=== PATIENT | female | born 1975 | race Two or more races ===

== ENCOUNTER 2016-06-02 14:20 | Emergency (ER) | payer SELFPAY ==
[2016-06-02] MEDS ORDERED: Ondansetron 4 MG/2 ML SDV IVPUSH ONE (15:07)
[2016-06-02] MEDS ORDERED: Sodium Chloride 0.9% 10 ML Syringe FLUSH PRN (15:07)
[2016-06-02] MEDS ORDERED: HYDROmorphone 1 MG/ML Syringe IVPUSH ONE (15:08)
[2016-06-02] MEDS ORDERED: Sodium Chloride 0.9% 1,000 ML IV SCH (15:15)
--- NOTE | 2016-06-02 15:15 | EDM.PDOC ---
ED HPI GI/ABDOMINAL - General Chief Complaint: Abdominal Pain Stated Complaint: ABD PAIN Time Seen by Provider: 06/02/16 14:49 Source of Information: Reports: Patient, Family History Limitations: Reports: No limitations - History of Present Illness INITIAL COMMENTS - FREE TEXT/NARRATIVE: The patient presents with right lower abdominal pain. This started last night. Her says it started in the middle of her back and now it is in the right lower abdomen. She has some nausea and vomiting. She has no dysuria or diarrhea. She has no history of kidney stones. She still has her gallbladder and appendix. Timing/Duration: Reports: Day(s): (Last night) Location: flank (right flank to right lower abdomen) Quality: Reports: stabbing Severity: severe Context: Denies: sick contact, bad/questionable food, out of country travel, recent surgery, recent trauma, lifting, activity/exercise Associated Symptoms (-Female): Reports: nausea/vomiting. 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 Denies: Diarrhea : Reports: flank pain (Right). Denies: dysuria, frequency Musculoskeletal: Reports: no symptoms Skin: Reports: no symptoms ED EXAM, GI/ABD - Physical Exam Exam: See Below Exam Limited By: No limitations General Appearance: alert, no apparent distress Ears: normal external exam Nose: normal inspection Head: atraumatic, normocephalic Neck: normal inspection Respiratory/Chest: no respiratory distress, lungs clear, normal breath sounds Cardiovascular: regular rate, rhythm, no edema, no murmur GI/Abdominal: soft, no organomegaly, no mass, tenderness (Moderate tenderness to the right lower abdomen) Back Exam: normal inspection Extremities: normal inspection Neurological: alert, oriented, no motor/sensory deficits Course - Vital Signs Last Recorded V/S: Last Vital Signs Temp 98.1 F 06/02/16 14:45 Pulse 71 06/02/16 14:45 Resp 20 06/02/16 14:45 BP 136/113 H 06/02/16 14:45 Pulse Ox 99 06/02/16 14:45 - Orders/Labs/Meds Orders: Active Orders 24 hr Category Date Time Status Peripheral IV Care [RC] . DIRECTED Care 06/02/16 15:08 Active Sodium Chloride 0.9% [Normal Saline] 1,000 ml Med 06/02/16 15:15 Active IV ASDIRECTED Sodium Chloride 0.9% [Saline Flush] Med 06/02/16 15:07 Active 10 ml FLUSH ASDIRECTED PRN ED Antiemetic Medication Reflex [OM.PC] Stat Oth 06/02/16 15:07 Ordered Peripheral IV Insertion Adult [OM.PC] Stat Oth 06/02/16 15:07 Ordered Medication Orders Sodium Chloride (Normal Saline) 1,000 mls @ 125 mls/hr IV ASDIRECTED ECHO Last Admin: 06/02/16 15:17 Dose: 125 mls/hr Sodium Chloride (Saline Flush) 10 ml FLUSH ASDIRECTED PRN PRN Reason: Keep Vein Open Last Admin: 06/02/16 15:19 Dose: 10 ml Labs: Laboratory Tests 06/02/16 06/02/16 06/02/16 Range/Units 14:45 15:00 15:00 WBC 11.58 H (3.98-10.04) K/mm3 RBC 4.66 (3.98-5.22) M/mm3 Hgb 13.0 (11.2-15.7) gm/L Hct 38.5 (34.1-44.9) % MCV 82.6 (79.4-94.8) fl MCH 27.9 (25.6-32.2) pg MCHC 33.8 (32.2-35.5) g/dl RDW Std Deviation 40.6 (36.4-46.3) fL Plt Count 259 (182-369) K/mm3 MPV 10.2 (9.4-12.3) fl Neut % (Auto) 52.6 (34.0-71.1) % Lymph % (Auto) 31.8 (19.3-51.7) % [place] % (Auto) 6.8 (4.7-12.5) % Eos % (Auto) 8.0 H (0.7-5.8) Baso % (Auto) 0.5 (0.1-1.2) % Neut # 6.09 (1.56-6.13) K/mm3 Lymph # 3.68 (1.18-3.74) K/mm3 [place] # 0.79 H (0.24-0.36) K/mm3 Eos # 0.93 H (0.04-0.36) K/mm3 Baso # 0.06 (0.01-0.08) K/mm3 Sodium 139 (136-145) mEq/L Potassium 4.0 (3.5-5.1) mEq/L Chloride 104 (98-107) mEq/L Carbon Dioxide 26 (21-32) mEq/L Anion Gap 13.0 (5-15) BUN 22 H (7-18) mg/dL Creatinine 0.6 (0.55-1.02) mg/dL Est Cr Clr Drug Dosing TNP Estimated GFR (MDRD) > 60 (>60) mL/min BUN/Creatinine Ratio 36.7 H (14-18) Glucose 83 (74-106) mg/dL Calcium 8.9 (8.5-10.1) mg/dL Total Bilirubin 0.5 (0.2-1.0) mg/dL AST 19 (15-37) U/L ALT 27 (14-59) U/L Alkaline Phosphatase 66 (46-116) U/L Total Protein 7.5 (6.4-8.2) g/dl Albumin 3.9 (3.4-5.0) g/dl Globulin 3.6 gm/dL Albumin/Globulin Ratio 1.1 (1-2) Lipase 114 (73-393) U/L HCG, Qual (NEGATIVE) Urine Color Light yellow (Yellow) Urine Appearance Clear (Clear) Urine pH 6.0 (5.0-8.0) Ur Specific [place] > or = 1.030 (1.005-1.030) Urine Protein Negative (Negative) Urine Glucose (UA) Negative (Negative) Urine Ketones Negative (Negative) Urine Occult Blood Negative (Negative) Urine Nitrite Negative (Negative) Urine Bilirubin Negative (Negative) Urine Urobilinogen 0.2 (0.2-1.0) Ur Leukocyte Esterase Negative (Negative) Urine RBC 0-5 (0-5) /hpf Urine WBC 0-5 (0-5) /hpf Ur Epithelial Cells 0-5 (0-5) /hpf Urine Bacteria Not seen (FEW) /hpf Urine Mucus Not seen (FEW) /hpf 06/02/16 Range/Units 15:00 WBC (3.98-10.04) K/mm3 RBC (3.98-5.22) M/mm3 Hgb (11.2-15.7) gm/L Hct (34.1-44.9) % MCV (79.4-94.8) fl MCH (25.6-32.2) pg MCHC (32.2-35.5) g/dl RDW Std Deviation (36.4-46.3) fL Plt Count (182-369) K/mm3 MPV (9.4-12.3) fl Neut % (Auto) (34.0-71.1) % Lymph % (Auto) (19.3-51.7) % [place] % (Auto) (4.7-12.5) % Eos % (Auto) (0.7-5.8) Baso % (Auto) (0.1-1.2) % Neut # (1.56-6.13) K/mm3 Lymph # (1.18-3.74) K/mm3 [place] # (0.24-0.36) K/mm3 Eos # (0.04-0.36) K/mm3 Baso # (0.01-0.08) K/mm3 Sodium (136-145) mEq/L Potassium (3.5-5.1) mEq/L Chloride (98-107) mEq/L Carbon Dioxide (21-32) mEq/L Anion Gap (5-15) BUN (7-18) mg/dL Creatinine (0.55-1.02) mg/dL Est Cr Clr Drug Dosing Estimated GFR (MDRD) (>60) mL/min BUN/Creatinine Ratio (14-18) Glucose (74-106) mg/dL Calcium (8.5-10.1) mg/dL Total Bilirubin (0.2-1.0) mg/dL AST (15-37) U/L ALT (14-59) U/L Alkaline Phosphatase (46-116) U/L Total Protein (6.4-8.2) g/dl Albumin (3.4-5.0) g/dl Globulin gm/dL Albumin/Globulin Ratio (1-2) Lipase (73-393) U/L HCG, Qual Negative (NEGATIVE) Urine Color (Yellow) Urine Appearance (Clear) Urine pH (5.0-8.0) Ur Specific [place] (1.005-1.030) Urine Protein (Negative) Urine Glucose (UA) (Negative) Urine Ketones (Negative) Urine Occult Blood (Negative) Urine Nitrite (Negative) Urine Bilirubin (Negative) Urine Urobilinogen (0.2-1.0) Ur Leukocyte Esterase (Negative) Urine RBC (0-5) /hpf Urine WBC (0-5) /hpf Ur Epithelial Cells (0-5) /hpf Urine Bacteria (FEW) /hpf Urine Mucus (FEW) /hpf Meds: Medications Generic Name Dose Route Start Last Admin Trade Name Freq PRN Reason Stop Dose Admin Sodium Chloride 1,000 mls @ 125 mls/hr 06/02/16 15:15 06/02/16 15:17 Normal Saline IV 125 mls/hr ASDIRECTED EHCO Administration Sodium Chloride 10 ml 06/02/16 15:07 06/02/16 15:19 Saline Flush FLUSH 10 ml ASDIRECTED PRN Administration Keep Vein Open Discontinued Medications Generic Name Dose Route Start Last Admin Trade Name Freq PRN Reason Stop Dose Admin Hydromorphone HCl 1 mg 06/02/16 15:08 06/02/16 15:20 Dilaudid IVPUSH 06/02/16 15:09 1 mg ONETIME ONE Administration Ondansetron HCl 4 mg 06/02/16 15:07 06/02/16 15:17 Zofran IVPUSH 06/02/16 15:08 4 mg ONETIME ONE Administration - Re-Assessments/Exams Free Text/Narrative Re-Assessment/Exam: 06/02/16 15:15 I ordered an IV NS at 125mL/hr, zofran 4mg IV and dilaudid 1mg IV. 06/02/16 17:03 Her WBC is slightly elevated at 11.58. Her CMP is negative. Her HCG and UA are negative. Her CT shows nothing acute. Her appendix is at the high side of normal with no inflammatory changes. There are no kidney stones. She is doing better. I will give her some toradol 30mg IV for the slight pain she still has and discharge her home. Departure - Departure Time of Disposition: 17:05 Disposition: Home, Self-Care 01 Condition: good Clinical Impression: Abdominal pain Qualifiers: Abdominal location: right lower quadrant Qualified Code(s): R10.31 - Right lower quadrant pain Prescriptions: Ondansetron [Zofran ODT] 4 mg PO Q6H PRN #20 tab.dis PRN Reason: Nausea/Vomiting traMADol [Ultram] 50 - 100 mg PO Q6H PRN #20 tablet PRN Reason: Pain Referrals: Eulogio Rashid [Physician] - 1 Week Forms: ED Department Discharge Additional Instructions: Take the ultram as needed for pain. Use the zofran as needed for nausea. Please return if you are worse. - My Orders Last 24 Hours: My Active Orders 06/02/16 15:07 Sodium Chloride 0.9% [Saline Flush] 10 ml FLUSH ASDIRECTED PRN ED Antiemetic Medication Reflex [OM.PC] Stat Peripheral IV Insertion Adult [OM.PC] Stat 06/02/16 15:08 Peripheral IV Care [RC] . DIRECTED 06/02/16 15:15 Sodium Chloride 0.9% [Normal Saline] 1,000 ml IV ASDIRECTED - Assessment/Plan Last 24 Hours: My Active Orders 06/02/16 15:07 Sodium Chloride 0.9% [Saline Flush] 10 ml FLUSH ASDIRECTED PRN ED Antiemetic Medication Reflex [OM.PC] Stat Peripheral IV Insertion Adult [OM.PC] Stat 06/02/16 15:08 Peripheral IV Care [RC] . DIRECTED 06/02/16 15:15 Sodium Chloride 0.9% [Normal Saline] 1,000 ml IV ASDIRECTED
--- NOTE | 2016-06-02 16:39 | CT ---
CT abdomen and pelvis Technique: Multiple axial sections were obtained from above the dome of the diaphragm inferiorly through the pubic symphysis. Intravenous and oral contrast was not utilized. Study has been performed as a ureteral stone protocol. Comparison: No previous abdominal imaging. Findings: Visualized lung bases shows nothing acute. Liver has an unremarkable noncontrast CT appearance. Spleen appears within normal limits. Adrenal glands show no nodule. Pancreas appears within normal limits. Gallbladder shows no calcified gallstones. Kidneys show no abnormal calcifications. No ureteral dilatation or ureteral stone is seen. Aorta shows no aneurysmal dilatation. No retroperitoneal adenopathy or mesenteric abnormalities are seen. No pelvic mass or adenopathy is seen. Appendix is seen and measures at the upper limits of normal at 8 mm. This is felt to be incidental as no inflammatory change is seen around the appendix. No bowel dilatation is seen. No free fluid or inflammatory change is identified. Bone window settings were reviewed which appear within normal limits for the patient's age. Impression: 1. No renal calculi, ureteral stone or ureteral dilatation is seen. 2. Noncontrast CT study of the abdomen and pelvis shows nothing acute. Diagnostic code #1
[2016-06-02] MEDS ORDERED: Ketorolac 30 MG/ML SDV IVPUSH ONE (17:06)
[2016-06-02 17:45] VITALS: BP 138/92
== END 2016-06-02 17:30 | disposition home or self-care (01) ==
LOC: JD.ED 14:20
DX: R10.31 Right lower quadrant pain (principal); R11.2 Nausea with vomiting, unspecified
CPT/HCPCS: 36415; 74176; 80053; 81001; 83690; 84703; 85025; 96361; 96374; 96375; 99284; J1170; J1885; J2405; J7040; J7050

== ENCOUNTER 2016-10-02 20:56 | Emergency (ER) | payer SELFPAY ==
[2016-10-02 21:07] VITALS: BP 152/72
[2016-10-02] MEDS ORDERED: Sodium Chloride 0.9% 1,000 ML IV SCH (21:30)
[2016-10-02] MEDS ORDERED: Sodium Chloride 0.9% 10 ML Syringe FLUSH PRN (21:50)
[2016-10-02] MEDS ORDERED: Iopamidol 612 MG/ML 150 ML Bottle IVPUSH ONE (21:50)
[2016-10-02] MEDS ORDERED: Diatrizoate Meglumine/Diatrizoate Sodium 37% 120 ML Bottle PO ONE (21:50)
--- NOTE | 2016-10-02 23:41 | EDM.PDOC ---
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 This history was apparently taken by a Romanian-speaking patient transport officer who responded, however, here in the ED, the patient denies that she had an argument. She states that she has chronic lower abdominal pain, for perhaps one year, cause unknown, and that she feels cold when she has the pain. She reports diarrhea all day today, frequent urination, nausea and vomiting, and subjective fever. It is noted that the patient's oxygen saturation is 100% on room air. She states that she was hospitalized in February 2016, at which time she was put on a liquid only diet for about one week. She states that she was given antibiotics. The patient reports that she is currently on her menstrual period. The patient does not have a PCP. Abdomen Pain Score (Numeric/FACES): 10 - Related Data Allergies Allergy/AdvReac Type Severity Reaction Status Date / Time No Known Allergies Allergy Verified 10/26/13 22:17 Home Meds: Home Meds . 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: Endocrine/Metabolic History: Reports: Obesity/BMI 30+, Other (See Below) ( Prediabetes) - Past Surgical History Female Surgical History: Reports: Section (x 1) Social & Family History - Family History Family Medical History: Noncontributory - Tobacco Use Smoking Status *Q: Never Smoker - Caffeine Use Caffeine Use: Reports: Coffee, Energy Drinks - Alcohol Use Alcohol Use History: No Days Per Week of Alcohol Use: 0 - Recreational Drug Use Recreational Drug Use: No - Living Situation & Occupation Living situation: Reports: Single, with Significant Other (Boyfriend) Occupation: Unemployed ED ROS GENERAL - Review of Systems Review Of Systems: See Below Constitutional: Reports: No Symptoms HEENT: Reports: No Symptoms Respiratory: Reports: No Symptoms Cardiovascular: Reports: No Symptoms Endocrine: Reports: No Symptoms GI/Abdominal: Reports: Abdominal Pain (Chronic, as per the HPI) : Reports: No Symptoms Musculoskeletal: Reports: No Symptoms Skin: Reports: No Symptoms Neurological: Reports: No Symptoms Psychiatric: Reports: No Symptoms Hematologic/Lymphatic: Reports: No Symptoms Immunologic: Reports: No Symptoms ED EXAM, GENERAL - Physical Exam Exam: See Below Exam Limited By: No Limitations General Appearance: Alert, WD/WN, Anxious Eye Exam: Bilateral Eye: Normal Inspection Ears: Normal External Exam, Hearing Grossly Normal Ear Exam: Bilateral Ear: Auricle Normal Nose: Normal Inspection, No Blood Throat/Mouth: Normal Inspection, Normal Lips, Normal Voice, No Airway Compromise Head: Atraumatic, Normocephalic Neck: Normal Inspection, Full Range of Motion Respiratory/Chest: No Respiratory Distress, Lungs Clear, Normal Breath Sounds, No Accessory Muscle Use Cardiovascular: Normal Peripheral Pulses, Regular Rate, Rhythm, No Gallop, No JVD, No Murmur, No Rub Peripheral Pulses: 4+: Radial (L), Radial (R) GI/Abdominal: Normal Bowel Sounds, Soft, No Organomegaly, No Distention, No Abnormal Bruit, No Mass, Tender (The patient cries out as if in excruciating pain with any palpation of her abdomen. The patient is unable to flex at the hips to bring her knees up, due to excessive pain.), Other (Obese) (Female) Exam: Deferred Rectal (Female) Exam: Deferred Back Exam: Normal Inspection, Full Range of Motion, NT Extremities: Normal Inspection, Normal Range of Motion, No Pedal Edema, Normal Capillary Refill Neurological: Alert, Oriented, Normal Cognition, No Motor/Sensory Deficits Psychiatric: Anxious Skin Exam: Warm, Dry, Intact, Normal Color, No Rash Lymphatic: No Adenopathy Course - Vital Signs Last Recorded V/S: Last Vital Signs Temp 36.4 C 10/02/16 20:56 Pulse 79 10/02/16 20:56 Resp 20 10/02/16 20:56 BP 152/72 H 10/02/16 20:56 Pulse Ox 95 10/02/16 20:56 - Orders/Labs/Meds Orders: Active Orders 24 hr Category Date Time Status Abdomen Pelvis w Cont [CT] Stat Exams 10/02/16 21:27 Taken Sodium Chloride 0.9% [Normal Saline] 1,000 ml Med 10/02/16 21:30 Active IV ASDIRECTED Sodium Chloride 0.9% [Saline Flush] Med 10/02/16 21:50 Active 10 ml FLUSH ONETIME PRN Medication Orders Sodium Chloride (Normal Saline) 1,000 mls @ 150 mls/hr IV ASDIRECTED ECHO Last Admin: 10/02/16 21:45 Dose: 150 mls/hr Sodium Chloride (Saline Flush) 10 ml FLUSH ONETIME PRN PRN Reason: Keep Vein Open Last Admin: 10/02/16 22:59 Dose: 10 ml Labs: Laboratory Tests 10/02/16 10/02/16 10/02/16 Range/Units 21:40 21:40 21:40 WBC 10.01 (3.98-10.04) K/mm3 RBC 4.61 (3.98-5.22) M/mm3 Hgb 12.8 (11.2-15.7) gm/L Hct 37.5 (34.1-44.9) % MCV 81.3 (79.4-94.8) fl MCH 27.8 (25.6-32.2) pg MCHC 34.1 (32.2-35.5) g/dl RDW Std Deviation 40.1 (36.4-46.3) fL Plt Count 280 (182-369) K/mm3 MPV 10.1 (9.4-12.3) fl Neutrophils % (Manual) 76 H (40-60) % Band Neutrophils % 0 (0-10) % Lymphocytes % (Manual) 21 (20-40) % Atypical Lymphs % 0 % Monocytes % (Manual) 1 L (2-10) % Eosinophils % (Manual) 2 (0.7-5.8) % Basophils % (Manual) 0 L (0.1-1.2) Platelet Estimate Adequate RBC Morph Comment Normal Puncture Site Rt radial ABG pH 7.45 (7.35-7.45) ABG pCO2 34.0 L (35.0-45.0) mmHg ABG pO2 70.0 L (80.0-100.0) mmHg ABG HCO3 23.1 (22.0-26.0) meq/L A-a Gradient 22 mmHg FiO2 21.00 (21.00-100.00) % Sodium 140 (136-145) mEq/L Potassium 3.3 L (3.5-5.1) mEq/L Chloride 104 (98-107) mEq/L Carbon Dioxide 24 (21-32) mEq/L Anion Gap 15.3 H (5-15) BUN 11 (7-18) mg/dL Creatinine 0.7 (0.55-1.02) mg/dL Est Cr Clr Drug Dosing 77.50 mL/min Estimated GFR (MDRD) > 60 (>60) mL/min BUN/Creatinine Ratio 15.7 (14-18) Glucose 100 (74-106) mg/dL Calcium 8.8 (8.5-10.1) mg/dL Total Bilirubin 0.9 (0.2-1.0) mg/dL AST 20 (15-37) U/L ALT 25 (14-59) U/L Alkaline Phosphatase 63 (46-116) U/L Total Protein 7.4 (6.4-8.2) g/dl Albumin 3.9 (3.4-5.0) g/dl Globulin 3.5 gm/dL Albumin/Globulin Ratio 1.1 (1-2) Lipase 80 (73-393) U/L Urine Color (Yellow) Urine Appearance (Clear) Urine pH (5.0-8.0) Ur Specific [place] (1.005-1.030) Urine Protein (Negative) Urine Glucose (UA) (Negative) Urine Ketones (Negative) Urine Occult Blood (Negative) Urine Nitrite (Negative) Urine Bilirubin (Negative) Urine Urobilinogen (0.2-1.0) Ur Leukocyte Esterase (Negative) Urine RBC (0-5) /hpf Urine WBC (0-5) /hpf Ur Epithelial Cells (0-5) /hpf Urine Bacteria (FEW) /hpf Urine Mucus (FEW) /hpf Urine HCG, Qual (NEGATIVE) 10/02/16 10/02/16 Range/Units 22:35 22:35 WBC (3.98-10.04) K/mm3 RBC (3.98-5.22) M/mm3 Hgb (11.2-15.7) gm/L Hct (34.1-44.9) % MCV (79.4-94.8) fl MCH (25.6-32.2) pg MCHC (32.2-35.5) g/dl RDW Std Deviation (36.4-46.3) fL Plt Count (182-369) K/mm3 MPV (9.4-12.3) fl Neutrophils % (Manual) (40-60) % Band Neutrophils % (0-10) % Lymphocytes % (Manual) (20-40) % Atypical Lymphs % % Monocytes % (Manual) (2-10) % Eosinophils % (Manual) (0.7-5.8) % Basophils % (Manual) (0.1-1.2) Platelet Estimate RBC Morph Comment Puncture Site ABG pH (7.35-7.45) ABG pCO2 (35.0-45.0) mmHg ABG pO2 (80.0-100.0) mmHg ABG HCO3 (22.0-26.0) meq/L A-a Gradient mmHg FiO2 (21.00-100.00) % Sodium (136-145) mEq/L Potassium (3.5-5.1) mEq/L Chloride (98-107) mEq/L Carbon Dioxide (21-32) mEq/L Anion Gap (5-15) BUN (7-18) mg/dL Creatinine (0.55-1.02) mg/dL Est Cr Clr Drug Dosing mL/min Estimated GFR (MDRD) (>60) mL/min BUN/Creatinine Ratio (14-18) Glucose (74-106) mg/dL Calcium (8.5-10.1) mg/dL Total Bilirubin (0.2-1.0) mg/dL AST (15-37) U/L ALT (14-59) U/L Alkaline Phosphatase (46-116) U/L Total Protein (6.4-8.2) g/dl Albumin (3.4-5.0) g/dl Globulin gm/dL Albumin/Globulin Ratio (1-2) Lipase (73-393) U/L Urine Color Yellow (Yellow) Urine Appearance Clear (Clear) Urine pH 7.5 (5.0-8.0) Ur Specific [place] 1.020 (1.005-1.030) Urine Protein Negative (Negative) Urine Glucose (UA) Negative (Negative) Urine Ketones Negative (Negative) Urine Occult Blood Trace-intact H (Negative) Urine Nitrite Negative (Negative) Urine Bilirubin Negative (Negative) Urine Urobilinogen 0.2 (0.2-1.0) Ur Leukocyte Esterase Negative (Negative) Urine RBC 0-5 (0-5) /hpf Urine WBC 0-5 (0-5) /hpf Ur Epithelial Cells 0-5 (0-5) /hpf Urine Bacteria Not seen (FEW) /hpf Urine Mucus Few (FEW) /hpf Urine HCG, Qual Negative (NEGATIVE) Meds: Medications Generic Name Dose Route Start Last Admin Trade Name Freq PRN Reason Stop Dose Admin Sodium Chloride 1,000 mls @ 150 mls/hr 10/02/16 21:30 10/02/16 21:45 Normal Saline IV 150 mls/hr ASDIRECTED ECHO Administration Sodium Chloride 10 ml 10/02/16 21:50 10/02/16 22:59 Saline Flush FLUSH 10 ml ONETIME PRN Administration Keep Vein Open Discontinued Medications Generic Name Dose Route Start Last Admin Trade Name Freq PRN Reason Stop Dose Admin Diatrizoate Meglum/Diatrizoate Sod 90 ml 10/02/16 21:50 10/02/16 22:59 Gastrografin 37% PO 10/02/16 21:51 90 ml ONETIME ONE Administration Iopamidol 125 ml 10/02/16 21:50 10/02/16 22:59 Isovue-300 (61%) IVPUSH 10/02/16 21:51 125 ml ONETIME ONE Administration - Radiology Interpretation Free Text/Narrative:: CT of the abdomen and pelvis with oral and IV contrast is read by [facility] as: 1. No acute findings. No acute appendicitis. 2. 3.2 cm round heterogeneous mass along the left lateral aspect of the uterus, possibly a subserosal fibroid or less likely adnexal region. Similar rounded contour of the left lateral uterus on the prior exam, but assessment is limited as the prior exam was performed without IV contrast. Evaluation of the uterus and adnexal structures is somewhat limited by CT. Findings may be further assessed with pelvic ultrasound if clinically indicated. - Re-Assessments/Exams Free Text/Narrative Re-Assessment/Exam: 10/03/16 00:37 Test results discussed with the patient. The patient's boyfriend speaks good Upper Sorbian and acted as an train station agent. Today's workup is unremarkable. It appears that she has been hyperventilating, which is likely the cause of her abdominal discomfort. The patient's boyfriend states that she has been told that in the past. I will refer the patient to the clinic where she can discuss long-term treatment for anxiety. Departure - Departure Time of Disposition: 00:38 Disposition: Home, Self-Care 01 Condition: Good Clinical Impression: Anxiety Abdominal pain Qualifiers: Abdominal location: right lower quadrant Qualified Code(s): R10.31 - Right lower quadrant pain - Discharge Information Referrals: PCP,None [Primary Care Provider] - Lulu Osborn PA-C [Physician Literacy Consultant] - Forms: ED Department Discharge Additional Instructions: You were seen in the emergency room for abdominal pain, diarrhea, frequent urination, nausea, and vomiting. Workup in the ER included blood work, a blood gas, a urinalysis, a urine test, and a CT scan of your abdomen and pelvis. Your workup indicates that you have been hyperventilating, likely due to anxiety. The remainder of your workup, including the CT scan, were unremarkable. Your your symptoms are MOST LIKELY due to anxiety. We recommend you follow-up with Lulu Osborn in the clinic to discuss long-term treatment for anxiety. If any other problems, please do not hesitate to return to the ER. - My Orders Last 24 Hours: My Active Orders 10/02/16 21:27 Abdomen Pelvis w Cont [CT] Stat 10/02/16 21:30 Sodium Chloride 0.9% [Normal Saline] 1,000 ml IV ASDIRECTED 10/02/16 21:50 Sodium Chloride 0.9% [Saline Flush] 10 ml FLUSH ONETIME PRN - Assessment/Plan Last 24 Hours: My Active Orders 10/02/16 21:27 Abdomen Pelvis w Cont [CT] Stat 10/02/16 21:30 Sodium Chloride 0.9% [Normal Saline] 1,000 ml IV ASDIRECTED 10/02/16 21:50 Sodium Chloride 0.9% [Saline Flush] 10 ml FLUSH ONETIME PRN
--- NOTE | 2016-10-03 09:54 | CT ---
CT abdomen and pelvis Technique: Multiple axial sections were obtained from above the dome of the diaphragm inferiorly through the pubic symphysis. Intravenous and oral contrast was utilized. Delayed images were also obtained through the bladder. Comparison: Previous noncontrast stone CT exam of 06/02/16. Findings: Visualized lung bases are clear. Liver shows no focal abnormality. Spleen appears within normal limits. Adrenal glands show no nodule. Pancreas appears normal. Kidneys show symmetric contrast enhancement without hydronephrosis or mass. Aorta shows no aneurysmal dilatation. No retroperitoneal adenopathy or mesenteric abnormalities are seen. Appendix is seen and is normal. No pelvic mass or adenopathy is noted. Incidental subserosal fibroid is noted on the left side of the uterus measuring 3.5 cm. Delayed images show contrast within the distal ureters and within the bladder. Bone window settings were reviewed which appear within normal limits for the patient's age. Impression: 1. Incidental 3.5 cm subserosal fibroid within the left side of the uterus. This finding felt to be present on prior CT exam but not well seen on previous exam due to lack of contrast. 2. No additional abnormality is seen on CT study of the abdomen and pelvis. Diagnostic code #2 I agree with preliminary report issued by [facility] ([facility] preliminary report dictated on 10/03/16, 12:37 AM Central Time)
== END 2016-10-03 00:53 | disposition home or self-care (01) ==
LOC: JD.ED 20:56
DX: R10.31 Right lower quadrant pain (principal); F41.9 Anxiety disorder, unspecified; E66.9 Obesity, unspecified; Z68.35 Body mass index [BMI] 35.0-35.9, adult
CPT/HCPCS: 36415; 36600; 74177; 80053; 81001; 81025; 82803; 83690; 85025; 96360; 96361; 99285; J7040; J7050; Q9963; Q9967; 99283

== ENCOUNTER 2018-05-05 10:14 | Emergency (ER) | payer SELFPAY ==
[2018-05-05 10:27] VITALS: BP 116/74
[2018-05-05] MEDS ORDERED: HYDROmorphone 1 MG/ML Syringe IVPUSH ONE (10:36)
[2018-05-05] MEDS ORDERED: Sodium Chloride 0.9% 10 ML Syringe FLUSH PRN (10:36)
--- NOTE | 2018-05-05 11:09 | EDM.PDOC ---
ED HPI GENERAL MEDICAL PROBLEM - General Chief Complaint: Chest Pain Stated Complaint: SENT OVER FROM [facility] Time Seen by Provider: 05/05/18 10:28 Source of Information: Reports: Patient, RN Notes Reviewed - History of Present Illness INITIAL COMMENTS - FREE TEXT/NARRATIVE: 42-year-old female has had some chills fever off and on for about 5-7 days. Started having left upper anterior chest discomfort last evening that continues , more severe today. There is pain with deep breathing. I am not getting a history of much coughing. History is somewhat challenged, she understands l Khmer quite well but her primary language is Maltese. Her or friend is here helping interpret questions as needed. She's not been having sore throat. No major nasal sinus drainage or congestion. The pain is stated to radiate to her left shoulder and left arm. Left Chest Pain Score (Numeric/FACES): 8 - Related Data Allergies Allergy/AdvReac Type Severity Reaction Status Date / Time No Known Allergies Allergy Verified 05/05/18 10:27 Home Meds: Home Meds Acetaminophen/HYDROcodone [Hilliard 325-5 MG] 1 tab PO Q6H PRN #14 tablet 05/05/18 [Rx] Past Medical History HEENT History: Reports: Impaired Vision Cardiovascular History: Reports: Other (See Below) Gastrointestinal History: Reports: Other (See Below) Other Gastrointestinal History: last year had virus in stomach [employer] History: Reports: Endocrine/Metabolic History: Reports: Obesity/BMI 30+ - Past Surgical History Female Surgical History: Reports: Section Social & Family History - Family History Family Medical History: Noncontributory - Tobacco Use Smoking Status *Q: Never Smoker - Caffeine Use Caffeine Use: Reports: Soda - Recreational Drug Use Recreational Drug Use: No - Living Situation & Occupation Living situation: Reports: Single, with Significant Other (Boyfriend) Occupation: Unemployed ED ROS GENERAL - Review of Systems Review Of Systems: See Below Constitutional: Reports: Fever, Chills HEENT: Denies: Sinus Problem, Throat Pain Respiratory: Reports: Pleuritic Chest Pain. Denies: Shortness of Breath, Wheezing, Cough Cardiovascular: Reports: Chest Pain (Left upper chest) GI/Abdominal: Denies: Abdominal Pain, Nausea, Vomiting Musculoskeletal: Reports: Shoulder Pain, Arm Pain Skin: Reports: No Symptoms Neurological: Reports: Headache ED EXAM, GENERAL - Physical Exam Exam: See Below General Appearance: Alert, Anxious, Moderate Distress Eye Exam: Bilateral Eye: PERRL Throat/Mouth: Normal Inspection, Normal Oropharynx Head: Atraumatic. No: Facial Swelling Neck: Supple Respiratory/Chest: Lungs Clear, Normal Breath Sounds, Respiratory Distress GI/Abdominal: Soft, Non-Tender Extremities: Normal Inspection. No: Pedal Edema, Leg Pain Neurological: Alert, No Motor/Sensory Deficits Skin Exam: Warm, Dry, Normal Color EKG INTERPRETATION EKG Date: 05/05/18 Rhythm: NSR [place]: Normal P-Wave: Present QRS: Normal ST-T: Normal Course - Vital Signs Text/Narrative:: Labs welcome back relatively normal, d-dimer negative, chest x-ray normal EKG normal. I think she does have a pinched nerve from her left neck, she is much better after half milligram Dilaudid IV. Discharge instructions as documented. Last Recorded V/S: Last Vital Signs Temp 97.9 F 05/05/18 10:23 Pulse 88 05/05/18 10:23 Resp 20 05/05/18 10:23 BP 116/74 05/05/18 10:23 Pulse Ox 96 05/05/18 10:23 - Orders/Labs/Meds Orders: Active Orders 24 hr Category Date Time Status EKG Documentation Completion [RC] ASDIRECTED Care 05/05/18 10:38 Active Peripheral IV Care [RC] . DIRECTED Care 05/05/18 10:37 Active Peripheral IV Insertion Adult [OM.PC] Stat Oth 05/05/18 10:36 Ordered EKG 12 Lead [EK] Stat Ther 05/05/18 10:38 Ordered Labs: Laboratory Tests 05/05/18 05/05/18 05/05/18 Range/Units 11:00 11:00 11:00 WBC 8.65 (3.98-10.04) K/mm3 RBC 5.08 (3.98-5.22) M/mm3 Hgb 14.0 (11.2-15.7) gm/L Hct 42.6 (34.1-44.9) % MCV 83.9 (79.4-94.8) fl MCH 27.6 (25.6-32.2) pg MCHC 32.9 (32.2-35.5) g/dl RDW Std Deviation 46.2 (36.4-46.3) fL Plt Count 307 (182-369) K/mm3 MPV 9.7 (9.4-12.3) fl Neut % (Auto) 63.8 (34.0-71.1) % Lymph % (Auto) 25.2 (19.3-51.7) % [place] % (Auto) 5.7 (4.7-12.5) % Eos % (Auto) 4.4 (0.7-5.8) Baso % (Auto) 0.6 (0.1-1.2) % Neut # (Auto) 5.52 (1.56-6.13) K/mm3 Lymph # (Auto) 2.18 (1.18-3.74) K/mm3 [place] # (Auto) 0.49 H (0.24-0.36) K/mm3 Eos # (Auto) 0.38 H (0.04-0.36) K/mm3 Baso # (Auto) 0.05 (0.01-0.08) K/mm3 D-Dimer, Quantitative < 0.19 L (0.19-0.50) mg/L Sodium 140 (136-145) mEq/L Potassium 3.8 (3.5-5.1) mEq/L Chloride 102 (98-107) mEq/L Carbon Dioxide 28 (21-32) mEq/L Anion Gap 13.8 (5-15) BUN 13 (7-18) mg/dL Creatinine 0.6 (0.55-1.02) mg/dL Est Cr Clr Drug Dosing 89.53 mL/min Estimated GFR (MDRD) > 60 (>60) mL/min BUN/Creatinine Ratio 21.7 H (14-18) Glucose 102 (74-106) mg/dL Calcium 9.1 (8.5-10.1) mg/dL Total Bilirubin 1.0 (0.2-1.0) mg/dL AST 53 H (15-37) U/L ALT 74 H (14-59) U/L Alkaline Phosphatase 84 (46-116) U/L C-Reactive Protein 1.4 H* (<1.0) mg/dL Total Protein 7.7 (6.4-8.2) g/dl Albumin 3.8 (3.4-5.0) g/dl Globulin 3.9 gm/dL Albumin/Globulin Ratio 1.0 (1-2) Meds: Medications Discontinued Medications Generic Name Dose Route Start Last Admin Trade Name Nikia PRN Reason Stop Dose Admin Hydromorphone HCl 1 mg 05/05/18 10:36 05/05/18 11:01 Dilaudid IVPUSH 05/05/18 10:37 1 mg ONETIME ONE Administration Methylprednisolone Sodium Succinate 125 mg 05/05/18 12:18 05/05/18 12:22 Solu-Medrol IVPUSH 05/05/18 12:19 125 mg ONETIME ONE Administration Sodium Chloride 10 ml 05/05/18 10:36 05/05/18 11:02 Saline Flush FLUSH 10 ml ASDIRECTED PRN Administration Keep Vein Open - Re-Assessments/Exams Free Text/Narrative Re-Assessment/Exam: 05/05/18 17:09 Chest x-ray normal, d-dimer normal. White blood count normal, C-reactive protein very mildly elevated. court monitor showing sinus rhythm no ectopy. EKG was normal. She does have tenderness left base of her neck with pain radiating down to shoulder and arm. I think she has cervical radiculopathy. Discharge instructions as documented. Departure - Departure Time of Disposition: 12:16 Disposition: Home, Self-Care 01 Condition: Fair Clinical Impression: Atypical chest pain, Cervical radiculopathy Prescriptions: Acetaminophen/HYDROcodone [Hilliard 325-5 MG] 1 tab PO Q6H PRN #14 tablet PRN Reason: Pain Instructions: Cervical Radiculopathy, [id number] Referrals: PCP,None [Primary Care Provider] - Forms: ED Department Discharge Additional Instructions: Prednisone 40 mg daily as prescribed, acetaminophen or ibuprofen every 6-8 hours as needed or hydrocodone if needed for severe pain. Do not take hydrocodone and acetaminophen at the same time. Follow-up at our [facility] medical clinic in about 4 days for recheck. Call [phone] for appointment. - My Orders Last 24 Hours: My Active Orders 05/05/18 10:36 Peripheral IV Insertion Adult [OM.PC] Stat 05/05/18 10:37 Peripheral IV Care [RC] . DIRECTED 05/05/18 10:38 EKG Documentation Completion [RC] ASDIRECTED EKG 12 Lead [EK] Stat - Assessment/Plan Last 24 Hours: My Active Orders 05/05/18 10:36 Peripheral IV Insertion Adult [OM.PC] Stat 05/05/18 10:37 Peripheral IV Care [RC] . DIRECTED 05/05/18 10:38 EKG Documentation Completion [RC] ASDIRECTED EKG 12 Lead [EK] Stat
--- NOTE | 2018-05-05 11:34 | CR ---
Chest: Portable view of the chest was obtained. Comparison: Prior chest x-ray of 10/26/13. Heart size and mediastinum are within normal limits for portable technique. Lungs show no definite acute parenchymal change. Bony structures are grossly intact. Impression: 1. Nothing acute is definitely appreciated on portable chest x-ray. Diagnostic code #2
[2018-05-05] MEDS ORDERED: methylPREDNISolone Sodium Succinate 125 MG/2 ML SDV IVPUSH ONE (12:18)
== END 2018-05-05 12:35 | disposition home or self-care (01) ==
LOC: JD.ED 10:14
DX: M54.12 Radiculopathy, cervical region (principal); R07.89 Other chest pain; E66.9 Obesity, unspecified
CPT/HCPCS: 36415; 71045; 80053; 85025; 85379; 86140; 87804; 93005; 96374; 96375; 99284; J1170; J2930; 93010

== ENCOUNTER 2019-12-16 19:33 | Emergency (ER) | payer SELFPAY ==
[2019-12-16 19:59] VITALS: BP 138/83; PULSE 76
[2019-12-16] MEDS ORDERED: Ibuprofen 600 MG Tab PO ONE (20:37)
[2019-12-16] MEDS ORDERED: Orphenadrine 100 MG Tab.ER PO STA (20:37)
--- NOTE | 2019-12-16 20:42 | EDM.PDOC ---
ED HPI GENERAL MEDICAL PROBLEM - General Chief Complaint: General Stated Complaint: shoulder nad neck pain Time Seen by Provider: 12/16/19 20:04 Source of Information: Reports: Patient History Limitations: Reports: Language Barrier (Used iPad warning coordination meteorologist) - History of Present Illness INITIAL COMMENTS - FREE TEXT/NARRATIVE: Ms. Bustos is a 44-year-old woman with a past medical history significant for untreated anxiety, who now presents the ED with a complaint of longstanding recurrent headaches, neck pain, ear pain, left-sided chest pain, and pain to both lower extremities. She states that she has got multiple evaluations by multiple providers, and told that she has peripheral neuropathy. She states that she was seen at the walk-in clinic earlier today, but sent here. She states that she feels some bumps to the back of her head, that are particularly tender. She states that she feels lightheaded. She feels like she is going to get a nosebleed. She also feels like the pain is next to her heart. Here in the ED, the patient is found to be hemodynamically stable, afebrile, saturating 100% on room air. The patient states that about a month ago she had a subjective fever and cough, although she has not had that since. Otherwise, the patient denies having a recent fever, chills, sore throat, nasal or sinus congestion, dyspnea, palpitations, nausea, vomiting, constipation, diarrhea, abdominal pain, urinary symptoms, recent weight gain or weight loss, recent bloody bowel movements or black bowel movements, recent joint aches, or rashes. The patient does not have a PCP. Headache Pain Score (Numeric/FACES): 10 - Related Data Allergies Allergy/AdvReac Type Severity Reaction Status Date / Time No Known Allergies Allergy Verified 12/16/19 19:59 Home Meds: Home Meds Acetaminophen/HYDROcodone [[place] 325-5 MG] 1 tab PO Q6H PRN #14 tablet 05/05/18 [Rx] Orphenadrine [Norflex] 1 tab PO Q12H PRN #14 tab.er 12/16/19 [Rx] Past Medical History HEENT History: Reports: Impaired Vision Psychiatric History: Reports: Anxiety (untreaated) Endocrine/Metabolic History: Reports: Obesity/BMI 30+, Other (See Below) (Prediabetes) - Past Surgical History HEENT Surgical History: Reports: Oral Surgery (dental extractions) Female Surgical History: Reports: Section (x 1) Social & Family History - Family History Family Medical History: Noncontributory - Tobacco Use Smoking Status *Q: Never Smoker Second Hand Smoke Exposure: No - Caffeine Use Caffeine Use: Reports: Coffee - Alcohol Use Alcohol Use History: No - Recreational Drug Use Recreational Drug Use: No - Living Situation & Occupation Living situation: Reports: Single, with Significant Other (Boyfriend) Occupation: Unemployed ED ROS GENERAL - Review of Systems Review Of Systems: Comprehensive ROS is negative, except as noted in HPI. ED EXAM, GENERAL - Physical Exam Exam: See Below Exam Limited By: No Limitations General Appearance: Alert, WD/WN, Anxious (kept eyes squeezed tight most of interview) Eye Exam: Bilateral Eye: EOMI, Normal Inspection, PERRL Ears: Normal External Exam, Normal Canal, Hearing Grossly Normal, Normal TMs Nose: Normal Inspection, Normal Mucosa, No Blood Throat/Mouth: Normal Inspection, Normal Lips, Normal Teeth, Normal Gums, Normal Oropharynx, Normal Voice, No Airway Compromise Head: Atraumatic, Normocephalic Neck: Normal Inspection, Supple, Non-Tender, Full Range of Motion, Other (Reproducible tenderness to palpation of the neck muscles, particularly at the insertion at the occiput) Respiratory/Chest: No Respiratory Distress, Lungs Clear, Normal Breath Sounds, No Accessory Muscle Use, Other (Tenderness to palpation of entire chest) Cardiovascular: Normal Peripheral Pulses, Regular Rate, Rhythm, No Gallop, No JVD, No Murmur, No Rub Peripheral Pulses: 3+: Radial (L), Radial (R) GI/Abdominal: Normal Bowel Sounds, Soft, Non-Tender, No Organomegaly, No Distention, No Abnormal Bruit, No Mass Back Exam: Normal Inspection, Full Range of Motion, NT Extremities: Normal Inspection, Normal Range of Motion, No Pedal Edema, Normal Capillary Refill, Other (Tenderness to palpation of all 4 extremities) Neurological: Alert, Oriented, CN II-XII Intact, Normal Cognition, Other (Generalized weakness, but no focal neurologic deficits) Psychiatric: Anxious Skin Exam: Warm, Dry, Intact, Normal Color, No Rash EKG INTERPRETATION EKG Date: 12/16/19 Time: 20:59 Rhythm: NSR Rate (Beats/Min): 85 [place]: Normal P-Wave: Present QRS: Normal ST-T: Normal QT: Normal Comparison: No Change (05/05/2018) Course - Vital Signs Last Recorded V/S: Last Vital Signs Temp 36.4 C 12/16/19 19:47 Pulse 76 12/16/19 19:47 Resp 18 12/16/19 19:47 BP 138/83 12/16/19 19:47 Pulse Ox 100 12/16/19 19:47 - Orders/Labs/Meds Labs: Laboratory Tests 12/16/19 12/16/19 12/16/19 Range/Units 20:50 20:55 20:55 WBC 9.48 (3.98-10.04) K/mm3 RBC 4.96 (3.98-5.22) M/mm3 Hgb 13.7 (11.2-15.7) gm/dl Hct 40.7 (34.1-44.9) % MCV 82.1 (79.4-94.8) fl MCH 27.6 (25.6-32.2) pg MCHC 33.7 (32.2-35.5) g/dl RDW Std Deviation 42.4 (36.4-46.3) fL Plt Count 340 (182-369) K/mm3 MPV 9.7 (9.4-12.3) fl Neutrophils % (Manual) 50 (40-60) % Band Neutrophils % 0 (0-10) % Lymphocytes % (Manual) 33 (20-40) % Atypical Lymphs % 5 % Monocytes % (Manual) 6 (2-10) % Eosinophils % (Manual) 3 (0.7-5.8) % Basophils % (Manual) 3 H (0.1-1.2) Platelet Estimate Adequate RBC Morph Comment Normal D-Dimer, Quantitative (0.19-0.50) mg/L Sodium 140 (136-145) mEq/L Potassium 3.6 (3.5-5.1) mEq/L Chloride 103 (98-107) mEq/L Carbon Dioxide 30 (21-32) mEq/L Anion Gap 10.6 (5-15) BUN 20 H (7-18) mg/dL Creatinine 0.6 (0.55-1.02) mg/dL Est Cr Clr Drug Dosing 87.73 mL/min Estimated GFR (MDRD) > 60 (>60) mL/min BUN/Creatinine Ratio 33.3 H (14-18) Glucose 96 (74-106) mg/dL Calcium 8.9 (8.5-10.1) mg/dL Magnesium 2.0 (1.8-2.4) mg/dl Total Bilirubin 0.5 (0.2-1.0) mg/dL AST 28 (15-37) U/L ALT 38 (14-59) U/L Alkaline Phosphatase 88 (46-116) U/L Troponin I < 0.017 (0.00-0.056) ng/mL C-Reactive Protein 1.1 H* (<1.0) mg/dL Total Protein 7.2 (6.4-8.2) g/dl Albumin 3.5 (3.4-5.0) g/dl Globulin 3.7 gm/dL Albumin/Globulin Ratio 1.0 (1-2) TSH 3rd Generation 4.476 H (0.358-3.74) uIU/mL SARS-CoV-2 RNA (JAMARCUS) Negative (NEGATIVE) 12/16/19 Range/Units 20:55 WBC (3.98-10.04) K/mm3 RBC (3.98-5.22) M/mm3 Hgb (11.2-15.7) gm/dl Hct (34.1-44.9) % MCV (79.4-94.8) fl MCH (25.6-32.2) pg MCHC (32.2-35.5) g/dl RDW Std Deviation (36.4-46.3) fL Plt Count (182-369) K/mm3 MPV (9.4-12.3) fl Neutrophils % (Manual) (40-60) % Band Neutrophils % (0-10) % Lymphocytes % (Manual) (20-40) % Atypical Lymphs % % Monocytes % (Manual) (2-10) % Eosinophils % (Manual) (0.7-5.8) % Basophils % (Manual) (0.1-1.2) Platelet Estimate RBC Morph Comment D-Dimer, Quantitative < 0.19 L (0.19-0.50) mg/L Sodium (136-145) mEq/L Potassium (3.5-5.1) mEq/L Chloride (98-107) mEq/L Carbon Dioxide (21-32) mEq/L Anion Gap (5-15) BUN (7-18) mg/dL Creatinine (0.55-1.02) mg/dL Est Cr Clr Drug Dosing mL/min Estimated GFR (MDRD) (>60) mL/min BUN/Creatinine Ratio (14-18) Glucose (74-106) mg/dL Calcium (8.5-10.1) mg/dL Magnesium (1.8-2.4) mg/dl Total Bilirubin (0.2-1.0) mg/dL AST (15-37) U/L ALT (14-59) U/L Alkaline Phosphatase (46-116) U/L Troponin I (0.00-0.056) ng/mL C-Reactive Protein (<1.0) mg/dL Total Protein (6.4-8.2) g/dl Albumin (3.4-5.0) g/dl Globulin gm/dL Albumin/Globulin Ratio (1-2) TSH 3rd Generation (0.358-3.74) uIU/mL SARS-CoV-2 RNA (JAMARCUS) (NEGATIVE) Meds: Medications Discontinued Medications Generic Name Dose Route Start Last Admin Trade Name Freq PRN Reason Stop Dose Admin Ibuprofen 600 mg 12/16/19 20:37 12/16/19 20:45 Motrin PO 12/16/19 20:38 600 mg ONETIME ONE Administration Orphenadrine Citrate 100 mg 12/16/19 20:37 12/16/19 20:45 Norflex PO 12/16/19 20:38 100 mg ONETIME STA Administration - Re-Assessments/Exams Free Text/Narrative Re-Assessment/Exam: 12/16/19 20:37 As above, the patient has a number of longstanding issues including a chronic/recurrent headache, felt primarily at the back of her head where the neck muscles insert in the occiput, and behind her eyes, along with left-sided chest pain, and generalized body aches. She is hemodynamically stable, afebrile, saturating 100% on room air, indicating some component of hyperventil ation, and she appears to be very anxious, squeezing her eyes shut during most of my evaluation. On examination, the patient is quite dramatic and complains of tenderness and generalized weakness virtually everywhere. No focal neurologic deficits were found. The patient would like an extensive work-up, despite my offer to refer her to a PCP for such. I have therefore ordered blood work, a chest x-ray, and ECG, a CT scan of her head without contrast, and a swab for the SARS-CoV-2 virus. In the meantime, the patient will be given oral Norflex and oral ibuprofen. 12/16/19 22:11 CT of the head without contrast is read by Dr. De La Rosa as: 1. Nothing acute is appreciated on noncontrast head CT study. 2. Mild atherosclerotic calcification is seen within the vertebral vessels. 2 view chest x-ray is read by Dr. De La Rosa as: 1. Nothing acute is seen on 2 view chest x-ray. 12/16/19 22:52 The patient's CBC is unremarkable. Her CMP is remarkable for a BUN slightly elevated at 20, but with a Cr normal at 0.6, and the remainder of her CMP being unremarkable. Her magnesium level is within normal limits at 2.0. Her troponin is undetectably low. Her D-dimer is undetectably low. Her CRP is slightly elevated at 1.1. Her TSH is elevated at 4.476. Her swab for the SARS-CoV-2 virus has returned negative. 12/16/19 23:11 Test results discussed with the patient using the iPad warning coordination meteorologist. As above, today's work-up is entirely unremarkable, with the exception of an elevated TSH level. I will discharge her home with a prescription for Norflex that she can medicinal plant picker at the [facility] tomorrow morning. I would like her to take [id number] ibuprofen, in addition. I will refer her to the clinic where she can establish a PCP, have her TSH rechecked, and discuss treatment options for her anxiety. Departure - Departure Time of Disposition: 23:12 Disposition: Home, Self-Care 01 Condition: Good Clinical Impression: Anxiety disorder, Elevated TSH, Tension type headache - Discharge Information *PRESCRIPTION DRUG MONITORING PROGRAM REVIEWED*: Not Applicable *COPY OF PRESCRIPTION DRUG MONITORING REPORT IN PATIENT HOMERO: Not Applicable Prescriptions: Orphenadrine [Norflex] 1 tab PO Q12H PRN #14 tab.er PRN Reason: Muscle Spasm Instructions: Living With Anxiety Referrals: Meme Davis NP [Nurse Practitioner] - Forms: ED Department Discharge Additional Instructions: You were seen in the emergency room for longstanding and recurrent headache, chest pain, and body aches. Work-up in the ER included blood work, a chest x-ray, a CT of your head without contrast, an ECG, and a swab for the SARS-CoV-2 virus. Your TSH, a measure of your thyroid function, returned elevated, indicating that you may have hypothyroidism. The remainder of your work-up was unremarkable, including the results of your swab for the SARS-CoV-2 virus, which returned negative. Based on your history, physical exam, and ER tests, your headache and body aches are due to muscle spasms, most likely related to untreated anxiety. You have been started on the muscle relaxant Norflex, and a prescription for Norflex has been sent to the [facility], located at [address] [facility]. Take 1 tablet of Norflex every 12 hours, starting tomorrow morning, 12/17/2019, as prescribed. Norflex works well with ibuprofen. We recommend that you take 3 tablets (600 mg) of [id number] ibuprofen up to every 8 hours, with food, as needed for aches and pains. We recommend that you follow-up with Meme Davis NP, or any of the other providers in the clinic, at the next available appointment, to establish a PCP, have them look into your thyroid issue, and to discuss treatment options for anxiety. If any other problems, please do not hesitate to return to the ER. Lo atendieron en la ashanti de emergencias por dolor de rubén, dolor de pecho y neha corporales recurrentes y de larga duracin. El estudio en la ashanti de emergencias incluy anlisis de antonio, alejandra radiografa de trax, alejandra tomografa computarizada de la rubén sin contraste, un ECG y un hisopo para detectar el virus SARS-CoV-2. Naylor TSH, alejandra medida de naylor funcin tiroidea, volvi a estar elevada, lo que indica que puede tener hipotiroidismo. El edgardo de naylor evaluacin no fue notable, incluidos los resultados de naylor hisopo para el virus SARS-CoV-2, que parth negativo. Segn naylor historial, examen fsico y pruebas de emergencia, naylor dolor de rubén y neha corporales se deben a espasmos musculares, muy probablemente relacionados con ansiedad no tratada. Crum comenzado con el relajante muscular Norflex y se crum enviado alejandra receta de Norflex a [facility], ubicada en [address] 1 tableta de Norflex cada 12 horas, comenzando maana por la maana, jasmyn 17/12/2019, segn lo prescrito. Norflex funciona adis con ibuprofeno. Le recomendamos que tome 3 tabletas (600 mg) de ibuprofeno de venta claudia hasta cada 8 horas, con alimentos, segn sea necesario para los neha y molestias. Le recomendamos que carisa un seguimiento con Crystal Ryan, CABLE PLACER o con cualquiera de los otros proveedores de la clnica, en la prxima maral disponible, para establecer un PCP, hacer que investiguen naylor problema de tiroides y discutir las opciones de tratamiento para la ansiedad. Si tiene algn otro problema, no dude en volver a la ashanti de emergencias. Sepsis Event Note (ED) - Evaluation Sepsis Screening Result: No Definite Risk - Focused Exam Vital Signs: Vital Signs Temp Pulse Resp BP Pulse Ox 12/16/19 19:47 36.4 C 76 18 138/83 100
--- NOTE | 2019-12-16 21:30 | CT ---
Head CT Technique: Multiple axial sections through the brain were obtained. Intravenous contrast was not utilized. Comparison: No prior intracranial imaging is available. Findings: Ventricles along with basal cisterns and sulci over the convexities are within normal limits for the patient's age. No abnormal parenchymal densities are seen. No evidence of intracranial hemorrhage. No midline shift or mass-effect is appreciated. Mild atherosclerotic calcification is seen within the vertebral vessels. Bone window settings were reviewed. Visualized mastoid sinuses and visualized paranasal sinuses show nothing acute. No acute calvarial finding is appreciated. Impression: 1. Nothing acute is appreciated on noncontrast head CT study. 2. Mild atherosclerotic calcification is seen within the vertebral vessels. Diagnostic code #2 This report was dictated in MDT
--- NOTE | 2019-12-16 22:03 | CR ---
Chest: 2 views of the chest were obtained. Comparison: Prior chest x-ray of 05/05/18. Heart size and mediastinum appear within normal limits. Lungs are clear with no acute parenchymal change. Bony structures are unremarkable. Impression: 1. Nothing acute is seen on 2 view chest x-ray. Diagnostic code #1 Study was dictated in MDT
== END 2019-12-16 23:30 | disposition home or self-care (01) ==
LOC: JD.ED 19:33
DX: G44.209 Tension-type headache, unspecified, not intractable (principal); F41.9 Anxiety disorder, unspecified; R94.6 Abnormal results of thyroid function studies; R53.1 Weakness; M54.2 Cervicalgia; M79.661 Pain in right lower leg; M79.662 Pain in left lower leg; E66.9 Obesity, unspecified; Z68.39 Body mass index [BMI] 39.0-39.9, adult; Z98.890 Other specified postprocedural states; Z20.828 Contact with and (suspected) exposure to other viral communicable diseases
CPT/HCPCS: 36415; 70450; 71046; 80053; 83735; 84443; 84484; 85007; 85027; 85379; 86140; 87635; 93005; 99285; A9270; 93010; 99284; U0002

== ENCOUNTER 2020-02-19 20:37 | Emergency (ER) | payer SELFPAY ==
[2020-02-19 20:59] VITALS: BP 130/91; PULSE 84
--- NOTE | 2020-02-19 21:23 | EDM.PDOC ---
ED HPI GENERAL MEDICAL PROBLEM - General Chief Complaint: General Stated Complaint: cough cheills dizzy sore throat Time Seen by Provider: 02/19/20 21:01 Source of Information: Reports: Patient, Family History Limitations: Reports: Language Barrier ( helping her communicate) - History of Present Illness INITIAL COMMENTS - FREE TEXT/NARRATIVE: The patient presents with chills, sore throat, dizziness, cough and chest pain. All symptoms started a few days ago but the chest pain started tonight. She has no abdominal pain, nausea or vomiting. She had chest pain in the past. She has no history of heart problems. She does not smoke. She does not think she was exposed to someone with COVID 19. She has no abdominal pain, nausea, vomiting or diarrhea. Onset: Gradual Duration: Day(s): Location: Reports: Chest Quality: Reports: Sharp Severity: Moderate Improves with: Reports: None Worsens with: Reports: None Associated Symptoms: Reports: Chest Pain, Cough, Fever/Chills, Shortness of Breath. 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: Psychiatric History: Reports: Anxiety Endocrine/Metabolic History: Reports: Obesity/BMI 30+, Other (See Below) - Past Surgical History HEENT Surgical History: Reports: Oral Surgery Female Surgical History: Reports: Section Social & Family History - Family History Family Medical History: No Pertinent Family History - Tobacco Use Tobacco Use Status *Q: Never Tobacco User Second Hand Smoke Exposure: No - Caffeine Use Caffeine Use: Reports: Coffee, Energy Drinks - Recreational Drug Use Recreational Drug Use: No - Living Situation & Occupation Living situation: Reports: Single, with Significant Other (Boyfriend) Occupation: Unemployed ED ROS GENERAL - Review of Systems Review Of Systems: See Below Constitutional: Reports: Chills, Malaise, Weakness HEENT: Reports: No Symptoms Respiratory: Reports: Shortness of Breath, Cough Cardiovascular: Reports: Chest Pain Endocrine: Reports: No Symptoms GI/Abdominal: Reports: No Symptoms : Reports: No Symptoms Musculoskeletal: Reports: No Symptoms ED EXAM, GENERAL - Physical Exam Exam: See Below Exam Limited By: No Limitations General Appearance: Alert, No Apparent Distress Ears: Normal External Exam Nose: Normal Inspection Head: Atraumatic, Normocephalic Neck: Normal Inspection Respiratory/Chest: No Respiratory Distress, Lungs Clear, Normal Breath Sounds Cardiovascular: Regular Rate, Rhythm, No Edema, No Murmur GI/Abdominal: Soft, Non-Tender, No Organomegaly, No Mass Extremities: Normal Inspection Neurological: Alert, Oriented, No Motor/Sensory Deficits #1 Interpretation EKG Date: 02/19/20 Time: 21:14 Rhythm: NSR Rate (Beats/Min): 79 [place]: Normal P-Wave: Present QRS: Normal ST-T: Normal QT: Normal Course - Vital Signs Last Recorded V/S: Last Vital Signs Temp 97.9 F 02/19/20 20:53 Pulse 84 02/19/20 20:53 Resp 20 02/19/20 20:53 BP 130/91 H 02/19/20 20:53 Pulse Ox 100 02/19/20 20:53 - Orders/Labs/Meds Orders: Active Orders 24 hr Category Date Time Status Cardiac Monitoring [RC] . DIRECTED Care 02/19/20 21:14 Active EKG Documentation Completion [RC] STAT Care 02/19/20 21:15 Active Chest 1V Frontal [CR] Stat Exams 02/19/20 21:15 Taken CORONAVIRUS COVID-19 PCR PHL Stat Lab 02/19/20 21:15 Ordered Labs: Laboratory Tests 02/19/20 02/19/20 Range/Units 21:26 21:26 WBC 10.75 H (3.98-10.04) K/mm3 RBC 4.92 (3.98-5.22) M/mm3 Hgb 13.8 (11.2-15.7) gm/dl Hct 39.3 (34.1-44.9) % MCV 79.9 (79.4-94.8) fl MCH 28.0 (25.6-32.2) pg MCHC 35.1 (32.2-35.5) g/dl RDW Std Deviation 40.7 (36.4-46.3) fL Plt Count 260 D (182-369) K/mm3 MPV 9.6 (9.4-12.3) fl Neut % (Auto) 59.0 (34.0-71.1) % Lymph % (Auto) 29.7 (19.3-51.7) % [place] % (Auto) 8.9 (4.7-12.5) % Eos % (Auto) 1.8 (0.7-5.8) Baso % (Auto) 0.6 (0.1-1.2) % Neut # (Auto) 6.35 H (1.56-6.13) K/mm3 Lymph # (Auto) 3.19 (1.18-3.74) K/mm3 [place] # (Auto) 0.96 H (0.24-0.36) K/mm3 Eos # (Auto) 0.19 (0.04-0.36) K/mm3 Baso # (Auto) 0.06 (0.01-0.08) K/mm3 Manual Slide Review Normal smear Sodium 138 (136-145) mEq/L Potassium 3.2 L (3.5-5.1) mEq/L Chloride 101 (98-107) mEq/L Carbon Dioxide 27 (21-32) mEq/L Anion Gap 13.2 (5-15) BUN 14 (7-18) mg/dL Creatinine 0.6 (0.55-1.02) mg/dL Est Cr Clr Drug Dosing TNP Estimated GFR (MDRD) > 60 (>60) mL/min BUN/Creatinine Ratio 23.3 H (14-18) Glucose 88 (74-106) mg/dL Calcium 8.9 (8.5-10.1) mg/dL Total Bilirubin 1.1 H (0.2-1.0) mg/dL AST 25 (15-37) U/L ALT 39 (14-59) U/L Alkaline Phosphatase 77 (46-116) U/L Troponin I < 0.017 (0.00-0.056) ng/mL Total Protein 7.3 (6.4-8.2) g/dl Albumin 3.7 (3.4-5.0) g/dl Globulin 3.6 gm/dL Albumin/Globulin Ratio 1.0 (1-2) - Re-Assessments/Exams Free Text/Narrative Re-Assessment/Exam: 02/19/20 22:05 I ordered an EKG, CXR, labs and COVID 19. Her EKG shows a NSR with no acute changes. 02/19/20 22:23 Her EKG shows a NSR with no acute changes. Her WBC was elevated at 10.75. Her K is low at 3.2. Her total bili is elevated at 1.1. Her troponin is negative. Her CXR shows mild infiltrate within the right lower lobe. Findings could represent atelectasis, aspiration or pneumonia. I am testing her for COVID. I will get her on a z-pack until I know results. Departure - Departure Time of Disposition: 22:30 Disposition: Home, Self-Care 01 Condition: Good Clinical Impression: Pneumonia Qualifiers: Pneumonia type: due to unspecified organism Laterality: right Lung location: lower lobe of lung Qualified Code(s): J18.9 - Pneumonia, unspecified organism - Discharge Information *PRESCRIPTION DRUG MONITORING PROGRAM REVIEWED*: Not Applicable *COPY OF PRESCRIPTION DRUG MONITORING REPORT IN PATIENT HOMERO: Not Applicable Referrals: PCP,None [Primary Care Provider] - Meme Davis, FABRIC WORKER LEADER [Nurse Practitioner] - 1 Week Forms: ED Department Discharge Additional Instructions: Take the zithromax 2 pills on day 1 and 1 pill on days 2 through 5. Take motrin or tylenol as needed for pain or fever. I have ordered a COVID 19 test. We will call you with results. Sepsis Event Note (ED) - Evaluation Sepsis Screening Result: No Definite Risk - Focused Exam Vital Signs: Vital Signs Temp Pulse Resp BP Pulse Ox 02/19/20 20:53 97.9 F 84 20 130/91 H 100 - My Orders Last 24 Hours: My Active Orders 02/19/20 21:14 Cardiac Monitoring [RC] . DIRECTED 02/19/20 21:15 EKG Documentation Completion [RC] STAT Chest 1V Frontal [CR] Stat CORONAVIRUS COVID-19 PCR PHL Stat - Assessment/Plan Last 24 Hours: My Active Orders 02/19/20 21:14 Cardiac Monitoring [RC] . DIRECTED 02/19/20 21:15 EKG Documentation Completion [RC] STAT Chest 1V Frontal [CR] Stat CORONAVIRUS COVID-19 PCR PHL Stat
== END 2020-02-19 22:45 | disposition home or self-care (01) ==
LOC: JD.ED 20:37
DX: J18.9 Pneumonia, unspecified organism (principal); R79.89 Other specified abnormal findings of blood chemistry; E66.9 Obesity, unspecified
CPT/HCPCS: 36415; 71045; 80053; 84484; 85025; 93005; 99285-25; U0002

== ENCOUNTER 2020-05-30 11:07 | Emergency (ER) | payer SELFPAY ==
[2020-05-30 11:19] VITALS: BP 117/69; PULSE 76
[2020-05-30] MEDS ORDERED: Diphtheria,Pertussis(Acell),Tetanus Vaccine 0.5 ML Syringe IM ONE (11:19)
--- NOTE | 2020-05-30 11:21 | EDM.PDOC ---
ED HPI GENERAL MEDICAL PROBLEM - General Chief Complaint: Laceration Stated Complaint: LT HAND THUMB LAC Time Seen by Provider: 05/30/20 11:09 Source of Information: Reports: Patient, Family, RN Notes Reviewed History Limitations: Reports: No Limitations - History of Present Illness INITIAL COMMENTS - FREE TEXT/NARRATIVE: Patient is a 44-year-old female presenting to the emergency department with complaints of a laceration to her left thumb. States that she was cutting up some food when she cut the side of her thumb. Her attempted to glue it with superglue which did not work. She is not sure when her last tetanus vaccination was. Left Finger-Thumb Pain Score (Numeric/FACES): 10 - Related Data Allergies Allergy/AdvReac Type Severity Reaction Status Date / Time No Known Allergies Allergy Verified 05/30/20 11:13 Home Meds: Home Meds . 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: Psychiatric History: Reports: Anxiety Endocrine/Metabolic History: Reports: Obesity/BMI 30+, Other (See Below) - Past Surgical History HEENT Surgical History: Reports: Oral Surgery Female Surgical History: Reports: Section Social & Family History - Family History Family Medical History: No Pertinent Family History - Caffeine Use Caffeine Use: Reports: Coffee, Energy Drinks - Living Situation & Occupation Living situation: Reports: Single, with Significant Other (Boyfriend) Occupation: Unemployed ED ROS GENERAL - Review of Systems Review Of Systems: Comprehensive ROS is negative, except as noted in HPI. ED EXAM, SKIN/RASH Exam: See Below Exam Limited By: No Limitations General Appearance: Alert, WD/WN, No Apparent Distress Respiratory/Chest: No Respiratory Distress, Lungs Clear, Normal Breath Sounds, No Accessory Muscle Use, Chest Non-Tender Cardiovascular: Normal Peripheral Pulses, Regular Rate, Rhythm, No Edema, No Gallop, No JVD, No Murmur, No Rub Skin: Other (1 cm superficial flap laceration to the ulnar aspect of the left thumb. No active bleeding. Wound is not gaping.) ED SKIN PROCEDURES - Laceration/Wound Repair Left Digit - 1st (Thumb) Appearance: Superficial Distal NVT: Neuro & Vascular Intact Skin Prep: Providone-Iodine (Betadine), Saline Exploration/Debridement/Repair: Wound Explored Closed with: Dermabond Lac/Wound length In cm: 1 Sterile Dressing Applied: Nurse Tetanus Status Addressed: Yes Complications: No Course - Vital Signs Last Recorded V/S: Last Vital Signs Temp 97.0 F 05/30/20 11:15 Pulse 76 05/30/20 11:15 Resp 18 05/30/20 11:15 BP 117/69 05/30/20 11:15 Pulse Ox 99 05/30/20 11:15 - Orders/Labs/Meds Meds: Medications Discontinued Medications Generic Name Dose Route Start Last Admin Trade Name Freq PRN Reason Stop Dose Admin Diphtheria/Tetanus/Acell Pertussis 0.5 ml 05/30/20 11:19 05/30/20 11:24 Boostrix IM 05/30/20 11:20 0.5 ml .ONCE ONE Administration Departure - Departure Time of Disposition: 11:43 Disposition: Home, Self-Care 01 Condition: Good Clinical Impression: Laceration - Discharge Information *PRESCRIPTION DRUG MONITORING PROGRAM REVIEWED*: No *COPY OF PRESCRIPTION DRUG MONITORING REPORT IN PATIENT HOMERO: No Instructions: Laceration Care, Adult Referrals: PCP,None [Primary Care Provider] - Forms: ED Department Discharge Additional Instructions: You were seen in the emergency department today for a laceration to your left thumb. On presentation the ER, the bleeding had stopped. Since the wound is not gaping, we were able to close this with a surgical glue. I would recommend keeping a Band-Aid over the area for the next few days to prevent the glue from falling off prematurely. The glue will fall off on its own over the course of 3 to 5 days. Do not pick at the glue. Watch for signs of infection including increased redness, swelling, purulent drainage. If these should occur, he should be seen in the clinic or the ER for antibiotic treatment. Your tetanus vaccination was updated today, therefore you are current for the next 10 years. Return to ER as needed. Sepsis Event Note (ED) - Focused Exam Vital Signs: Vital Signs Temp Pulse Resp BP Pulse Ox 05/30/20 11:15 97.0 F 76 18 117/69 99
== END 2020-05-30 11:50 | disposition home or self-care (01) ==
LOC: JD.ED 11:07
DX: S61.012A Laceration without foreign body of left thumb without damage to nail, initial encounter (principal); E66.9 Obesity, unspecified; Z68.36 Body mass index [BMI] 36.0-36.9, adult; Z23 Encounter for immunization; W26.8XXA Contact with other sharp object(s), not elsewhere classified, initial encounter
CPT/HCPCS: 12001; 90471; 90715; 99282; 99282-25

== ENCOUNTER 2020-07-15 22:10 | Emergency (ER) | payer SELFPAY ==
[2020-07-15 22:20] VITALS: BP 144/103; PULSE 94
[2020-07-15] MEDS ORDERED: Sodium Chloride 0.9% 1,000 ML IV SCH (23:45)
[2020-07-15] MEDS ORDERED: Ondansetron 4 MG/2 ML SDV IVPUSH ONE (23:50)
[2020-07-15] MEDS ORDERED: HYDROmorphone 0.5 MG/0.5 ML Syringe IVPUSH ONE (23:50)
--- NOTE | 2020-07-15 23:56 | EDM.PDOC ---
ED HPI GENERAL MEDICAL PROBLEM - General Chief Complaint: Syncope Stated Complaint: chest pain Time Seen by Provider: 07/15/20 23:39 Source of Information: Reports: Patient, Significant Other (Boyfriend) History Limitations: Reports: Language Barrier (Boyfriend interpreted Sudanese) - History of Present Illness INITIAL COMMENTS - FREE TEXT/NARRATIVE: Ms. Bustos is a pleasant 44-year-old woman who is now brought to the ED by her boyfriend, who tells me that she developed left-sided chest pain while the 2 of them were cleaning around 22:00 this evening, after which she fainted for less than 3 minutes. When she recovered, her mentation was normal, but she has been groaning in pain ever since, continuing to have left-sided chest pain. No associated dyspnea, nausea, or diaphoresis. She denies being injured when she fainted. The patient's boyfriend tells me that he and the patient were traveling from [place] about 2 weeks ago, and when they reached [place], the patient had the same left-sided chest pain. She was seen at one of the [place] ED's, or a work-up was negative. She was prescribed ibuprofen and methocarbamol (Robaxin), which the patient has not been taking as prescribed. She was also referred to a Newspaper Subscription Solicitor, but has not yet made an appointment. Here in the ED tonight, the patient's initial BP is found to be mildly elevated at 144/103, otherwise, she is hemodynamically stable, afebrile, saturating 97% on room air. The patient reports that she has been feeling tired recently, otherwise, the patient denies having a recent fever, chills, sore throat, ear pain, nasal or sinus congestion, cough, dyspnea, chest pain, palpitations, nausea, vomiting, constipation, diarrhea, abdominal pain, urinary symptoms, recent weight gain or weight loss, recent bloody bowel movements or black bowel movements, recent joint aches, headaches, or rashes. I reviewed the PMHx/PSHx/SocHx, which was reviewed with the patient by the RN. The patient does not have a PCP. Left Chest Pain Score (Numeric/FACES): 10 - Related Data Allergies Allergy/AdvReac Type Severity Reaction Status Date / Time No Known Allergies Allergy Verified 07/15/20 22:15 Home Meds: Home Meds . 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: Psychiatric History: Reports: Anxiety Endocrine/Metabolic History: Reports: Obesity/BMI 30+ - Past Surgical History HEENT Surgical History: Reports: Oral Surgery Female Surgical History: Reports: Section Social & Family History - Family History Family Medical History: No Pertinent Family History - Tobacco Use Tobacco Use Status *Q: Never Tobacco User - Caffeine Use Caffeine Use: Reports: None - Recreational Drug Use Recreational Drug Use: No - Living Situation & Occupation Living situation: Reports: Single, with Significant Other (Boyfriend) Occupation: Unemployed ED ROS GENERAL - Review of Systems Review Of Systems: Comprehensive ROS is negative, except as noted in HPI. ED EXAM, GENERAL - Physical Exam Exam: See Below Exam Limited By: No Limitations General Appearance: Alert, WD/WN, Mild Distress (groaning, squeezing eyes tight) Eye Exam: Bilateral Eye: EOMI, Normal Inspection Ears: Normal External Exam, Hearing Grossly Normal Nose: Normal Inspection Throat/Mouth: Normal Inspection, Normal Lips, Normal Voice, No Airway Compromise Head: Atraumatic, Normocephalic Neck: Normal Inspection, Full Range of Motion Respiratory/Chest: No Respiratory Distress, Lungs Clear, Normal Breath Sounds, No Accessory Muscle Use, Other (Reproducible tenderness to palpation of the left breast area) Cardiovascular: Normal Peripheral Pulses, Regular Rate, Rhythm, No Gallop, No JVD, No Murmur, No Rub Peripheral Pulses: 3+: Radial (L), Radial (R) GI/Abdominal: Normal Bowel Sounds, Soft, Non-Tender, No Organomegaly, No Distention, No Abnormal Bruit, No Mass Back Exam: Normal Inspection, Full Range of Motion, NT Extremities: Normal Inspection, Normal Range of Motion, Normal Capillary Refill Neurological: Alert, Oriented, Normal Cognition, No Motor/Sensory Deficits Psychiatric: Normal Affect Skin Exam: Warm, Dry, Intact, Normal Color, No Rash #1 Interpretation EKG Date: 07/15/20 Time: 22:16 Rhythm: NSR Rate (Beats/Min): 77 [place]: Normal P-Wave: Present QRS: Normal ST-T: Normal QT: Normal Comparison: No Change (02/19/2020) Course - Vital Signs Last Recorded V/S: Last Vital Signs Temp 36.2 C 07/15/20 22:16 Pulse 94 07/15/20 22:16 Resp 18 07/15/20 22:16 BP 144/103 H 07/15/20 22:16 Pulse Ox 97 07/15/20 22:16 - Orders/Labs/Meds Orders: Active Orders 24 hr Category Date Time Status Chest 2V [CR] Stat Exams 07/15/20 23:50 Taken Labs: Laboratory Tests 07/15/20 07/15/20 07/15/20 Range/Units 22:20 22:20 22:20 WBC 10.41 H (3.98-10.04) K/mm3 RBC 4.46 (3.98-5.22) M/mm3 Hgb 12.4 (11.2-15.7) gm/dl Hct 37.3 (34.1-44.9) % MCV 83.6 D (79.4-94.8) fl MCH 27.8 (25.6-32.2) pg MCHC 33.2 (32.2-35.5) g/dl RDW Std Deviation 41.9 (36.4-46.3) fL Plt Count 264 (182-369) K/mm3 MPV 10.1 (9.4-12.3) fl Neutrophils % (Manual) 69 H (40-60) % Band Neutrophils % 0 (0-10) % Lymphocytes % (Manual) 24 (20-40) % Atypical Lymphs % 0 % Monocytes % (Manual) 4 (2-10) % Eosinophils % (Manual) 3 (0.7-5.8) % Basophils % (Manual) 0 L (0.1-1.2) Platelet Estimate Adequate RBC Morph Comment Normal D-Dimer, Quantitative 0.24 (0.19-0.50) mg/L Sodium 138 (136-145) mEq/L Potassium 3.5 (3.5-5.1) mEq/L Chloride 101 (98-107) mEq/L Carbon Dioxide 26 (21-32) mEq/L Anion Gap 14.5 (5-15) BUN 26 H (7-18) mg/dL Creatinine 0.5 L (0.55-1.02) mg/dL Est Cr Clr Drug Dosing TNP Estimated GFR (MDRD) > 60 (>60) mL/min BUN/Creatinine Ratio 52.0 H (14-18) Glucose 97 (74-106) mg/dL Calcium 8.5 (8.5-10.1) mg/dL Total Bilirubin 0.4 (0.2-1.0) mg/dL AST 20 (15-37) U/L ALT 26 (14-59) U/L Alkaline Phosphatase 111 (46-116) U/L Troponin I < 0.017 (0.00-0.056) ng/mL Total Protein 7.6 (6.4-8.2) g/dl Albumin 3.8 (3.4-5.0) g/dl Globulin 3.8 gm/dL Albumin/Globulin Ratio 1.0 (1-2) Meds: Medications Discontinued Medications Generic Name Dose Route Start Last Admin Trade Name Freq PRN Reason Stop Dose Admin Hydromorphone HCl 0.5 mg 07/15/20 23:50 07/15/20 23:58 Hydromorphone 0.5 Mg/0.5 Ml Syringe IVPUSH 07/15/20 23:51 0.5 mg ONETIME ONE Administration Sodium Chloride 1,000 mls @ 150 mls/hr 07/15/20 23:45 07/15/20 23:57 Normal Saline IV 150 mls/hr ASDIRECTED ECHO Administration Ondansetron HCl 4 mg 07/15/20 23:50 07/15/20 23:57 Ondansetron 4 Mg/2 Ml Sdv IVPUSH 07/15/20 23:51 4 mg ONETIME ONE Administration - Re-Assessments/Exams Free Text/Narrative Re-Assessment/Exam: 07/15/20 23:52 As above, the patient suffered a syncopal episode tonight while cleaning, being unresponsive for less than 3 minutes, but then recovering without confusion. She has been complaining of left-sided chest pain ever since, which is reproducible upon palpitation of her left breast area. No other symptoms, such as a headache, nausea, dyspnea, or diaphoresis. She had the same left-sided chest pain about 2 weeks ago, and was seen at one of the [facility], with an apparently negative work-up. She was prescribed ibuprofen and methocarbamol (Robaxin), which her boyfriend tells me she is not really taking. An ECG obtained at triage shows no ischemic changes. The CBC and CMP are unremarkable, while a troponin is undetectably low. I have added a D-dimer and a chest x- ray. In the meantime, the patient will be given some IV Dilaudid, IV Zofran, and IV fluid. 07/16/20 00:40 Two-view chest radiograph appears to be grossly normal. The cardiac silhouette is within normal limits. No pulmonary vascular congestion. No pleural effusions. No focal infiltrate. No pneumothorax. Formal read per the Radiologist pending. The patient's D-dimer is within normal limits at 0.24. 07/16/20 00:43 Test results discussed with the patient and her boyfriend. As above, today's work-up is unremarkable. Because she has reproducible tenderness to her left breast area, her pain is most likely musculoskeletal in etiology. I am recommending a muscle relaxant and ibuprofen, which, coincidently, she was already prescribed from [place], but is not taking. I therefore recommended that she take those medicines as prescribed. I will refer her to the clinic, to establish a PCP, in the event that her pain persists. Departure - Departure Time of Disposition: 00:44 Disposition: Home, Self-Care 01 Condition: Good Clinical Impression: Musculoskeletal chest pain - Discharge Information *PRESCRIPTION DRUG MONITORING PROGRAM REVIEWED*: Not Applicable *COPY OF PRESCRIPTION DRUG MONITORING REPORT IN PATIENT HOMERO: Not Applicable Instructions: Chest Wall Pain Referrals: PCP,None [Primary Care Provider] - Meme Davis NP [Nurse Practitioner] - Forms: ED Department Discharge Additional Instructions: You were seen in the emergency room after fainting after developing left-sided chest pain. Work-up in the ER included several blood tests, a chest x-ray, and an ECG. Your entire work-up was unremarkable. You have not suffered a heart attack. You do not have a blood clot in your lungs. You do not have a collapsed lung. You do not have pneumonia. Based on your history, physical exam, and ER tests, the cause of your left sided chest pain is most likely musculoskeletal in etiology. You were prescribed the muscle relaxant methocarbamol (Robaxin) and ibuprofen from the ER in [place]. We recommend that you take both of these as prescribed. If your symptoms persist, please follow-up with Meme Davis NP, or one of the other providers in the clinic, for further evaluation. If any other problems, please do not hesitate to return to the ER. Sepsis Event Note (ED) - Evaluation Sepsis Screening Result: No Definite Risk - Focused Exam Vital Signs: Vital Signs Temp Pulse Resp BP Pulse Ox 07/15/20 22:16 36.2 C 94 18 144/103 H 97 - My Orders Last 24 Hours: My Active Orders 07/15/20 23:50 Chest 2V [CR] Stat - Assessment/Plan Last 24 Hours: My Active Orders 07/15/20 23:50 Chest 2V [CR] Stat
--- NOTE | 2020-07-16 08:00 | CR ---
Chest: PA and lateral views of the chest were obtained. Comparison: Prior chest x-ray of 12/16/19. Heart size is slightly enlarged. Upper mediastinum is within normal limits. Lungs are clear with no acute parenchymal change. Bony structures are within normal limits. Impression: 1. Heart size is felt to be slightly prominent. 2. Nothing acute is otherwise seen. Diagnostic code #2
== END 2020-07-16 00:58 | disposition home or self-care (01) ==
LOC: JD.ED 22:10
DX: R07.89 Other chest pain (principal); E66.9 Obesity, unspecified; Z68.30 Body mass index [BMI] 30.0-30.9, adult
CPT/HCPCS: 36415; 71046; 80053; 84484; 85007; 85027; 85379; 93005; 96374; 96375; 99285; J1170; J2405; J7030; 93010; 99284

== ENCOUNTER 2021-10-08 17:55 | Emergency (ER) | payer MEDICAID ==
[2021-10-08 18:27] VITALS: BP 144/86; PULSE 96
[2021-10-08] MEDS ORDERED: Ketorolac 60 MG/2 ML SDV IM ONE (18:28)
[2021-10-08] MEDS ORDERED: Ondansetron 4 MG Tab.DIS PO ONE (18:48)
[2021-10-08 19:25] LABS: HEMOGLOBIN A1C 5.5 %
[2021-10-08 19:42] LABS: CORONAVIRUS COVID-19 NAA NEGATIVE (NEGATIVE)
[2021-10-08] MEDS ORDERED: Acetaminophen/oxyCODONE 325-5 MG Tab PO ONE (21:38)
== END 2021-10-08 22:12 | disposition home or self-care (01) ==
LOC: JD.ED 17:55
DX: B34.9 Viral infection, unspecified (principal); M19.90 Unspecified osteoarthritis, unspecified site; E11.9 Type 2 diabetes mellitus without complications; E03.9 Hypothyroidism, unspecified; E66.9 Obesity, unspecified; Z68.30 Body mass index [BMI] 30.0-30.9, adult; Z20.822 Contact with and (suspected) exposure to COVID-19
CPT/HCPCS: 0240U; 36415; 80053; 80061; 81001; 83036; 84443; 85025; 87086; 96372; 99283; A9270; J1885

== ENCOUNTER 2023-11-30 13:01 | Emergency (ER) | payer SELFPAY ==
[2023-11-30 13:33] LABS: BASOPHILS ABSOLUTE AUTO 0.1 K/mm3 (0.0-0.2); BASOPHILS PERCENT AUTO 0.6 % (0.0-1.0); EOSINOPHILS ABSOLUTE AUTO 0.6 K/mm3 (0.0-0.4); EOSINOPHILS PERCENT AUTO 7.3 % (0.0-6.0); HEMATOCRIT 42.1 % (37.0-47.0); IMMATURE GRAN ABSOLUTE AUTO 0.03 K/mm3 (0.00-0.05); IMMATURE GRAN PERCENT AUTO 0.4 % (0.0-0.4); LYMPHOCYTES ABSOLUTE AUTO 2.5 K/mm3 (1.0-4.8); LYMPHOCYTES PERCENT AUTO 30.5 % (24.0-44.0); MEAN CORPUSCULAR HEMOGLOBIN 27.5 pg (28.0-32.0); MEAN CORPUSCULAR HGB CONC 33.3 g/dl (32.0-36.0); MEAN CORPUSCULAR VOLUME 82.5 fl (83.0-99.0); MEAN PLATELET VOLUME 9.6 fl (9.4-12.3); MONOCYTES ABSOLUTE AUTO 0.6 K/mm3 (0.0-0.8); MONOCYTES PERCENT AUTO 7.3 % (0.0-8.0); NEUTROPHILS ABSOLUTE AUTO 4.4 K/mm3 (1.8-7.7); NEUTROPHILS PERCENT AUTO 53.9 % (41.0-71.0); PLATELET COUNT,PLT 231 K/mm3 (150-400); WHITE BLOOD CELL COUNT,WBC 8.23 K/mm3 (3.9-11.3)
[2023-11-30 13:47] LABS: PROTHROMBIN TIME 9.8 SECONDS (9.7-12.0)
[2023-11-30 13:48] LABS: PTT,PARTIAL THROMBOPLSTIN TIME 27.3 SECONDS (21.7-31.4)
[2023-11-30 13:50] LABS: D-DIMER QUANTITATIVE < 0.19 mg/L (0.19-0.50); INR < 0.93
[2023-11-30 14:13] LABS: A/G RATIO 1.1 (1-2); ALBUMIN 3.8 g/dl (3.4-5.0); ANION GAP 9.8 (5-15); BILIRUBIN TOTAL 0.7 mg/dL (0.2-1.0); CALCIUM 9.4 mg/dL (8.5-10.1); CREATININE 0.6 mg/dL (0.55-1.02); EST CRCL DRUG DOSING (CG) 83.26 mL/min; MAGNESIUM 1.9 mg/dL (1.8-2.4); POTASSIUM,K 3.8 mEq/L (3.5-5.1); PROTEIN TOTAL,TP 7.3 g/dl (6.4-8.2)
[2023-11-30] MEDS: Orphenadrine 100 MG Tab.ER PO STA (15:30)
[2023-11-30] MEDS: Acetaminophen/HYDROcodone 325-5 MG Tab PO ONE (15:30)
[2023-11-30] MEDS: Ketorolac 30 MG/ML SDV IVPUSH ONE (15:30)
[2023-11-30] MEDS: Alum Hydrox/Mag Hydrox/Simeth 30 ML, Lidocaine 2% 15 ML PO ONE (15:31)
[2023-11-30 17:28] VITALS: BP 125/74; PULSE 70
== END 2023-11-30 16:55 | disposition home or self-care (01) ==
LOC: JD.ED 13:01
DX: R07.89 Other chest pain (principal); E66.9 Obesity, unspecified; Z68.43 Body mass index [BMI] 50.0-59.9, adult
CPT/HCPCS: 36415; 71045; 80053; 83735; 83880; 84484; 85025; 85379; 85610; 85730; 87635; 93005; 96374; 99285; A9270; J1885; 93010; 99284; U0002